=== PATIENT | female | born 1990 | race African-American/Black ===

== ENCOUNTER 2018-01-30 03:20 | Inpatient (IN) | payer OTHER ==
[2018-01-30] MEDS: ELECTROLYTE-148 SOLN 1,000 ML IV SCH (03:40)
[2018-01-30] MEDS ORDERED: BUTORPHANOL TARTRATE 1 MG/ML VIAL IVPB ONE (04:00)
[2018-01-30] MEDS ORDERED: PROMETHAZINE HCL 25 MG/1 ML VIAL IVPB ONE (04:00)
[2018-01-30] MEDS ORDERED: BUTORPHANOL TARTRATE 1 MG/ML VIAL ONE (04:07)
[2018-01-30] MEDS ORDERED: PROMETHAZINE HCL 25 MG/1 ML VIAL ONE (04:08)
[2018-01-30 04:40] VITALS: BMI 36.8
[2018-01-30 04:43] LABS: BASO % 0.5 % (0-2.0); EOS % 0.8 % (0-4.5); HEMATOCRIT 32.9 % (32.4-45.2); HEMOGLOBIN 10.8 GM/dL (10.7-15.3); LYMPH % 21.3 % (8-40); MCHC 32.7 g/dl (32.0-36.0); MEAN CELL VOLUME 76.5 fl (80-96); MEAN PLT VOLUME 9.6 fl (7.5-11.1); MONO % 8.2 % (3.8-10.2); NEUT % 69.2 % (42.8-82.8); PLATELET COUNT 233 K/MM3 (134-434); RDW 20.4 % (11.6-15.6); WHITE BLOOD COUNT 6.8 K/mm3 (4.0-10.0)
[2018-01-30 05:22] LABS: INR 0.93 (0.82-1.09); PROTHROMBIN TIME (PATIENT) 10.5 SEC (9.98-11.88)
[2018-01-30 05:24] LABS: ACTIVATED PTT 27.4 SECONDS (26.9-34.4)
[2018-01-30 05:30] LABS: ANION GAP 7 (8-16); BLOOD UREA NITROGEN 11 mg/dL (7-18); CALCIUM 8.8 mg/dL (8.5-10.1); CHLORIDE 107 mmol/L (98-107); CO2 24 mmol/L (21-32); CREATININE 0.7 mg/dL (0.55-1.02); GLUCOSE,RANDOM 78 mg/dL (74-106); POTASSIUM 4.3 mmol/L (3.5-5.1); SODIUM 138 mmol/L (136-145)
[2018-01-30] MEDS ORDERED: FENTANYL/BUPIVACAINE/NS/PF - PCEA - 50 ML DISP.SYRIN EP ONE ×2 (05:51→11:36)
[2018-01-30] MEDS ORDERED: NALOXONE HCL 0.4 MG/ML VIAL IVPUSH PRN (06:27)
[2018-01-30] MEDS ORDERED: FENTANYL/BUPIVACAINE/NS/PF - PCEA - 50 ML DISP.SYRIN EP SCH (06:30)
[2018-01-30] MEDS ORDERED: TUBERCULIN PPD 5 TU/0.1ML SYRINGE (IN PATIENT USE ONLY) ID ONE (09:00)
--- NOTE | 2018-01-30 09:24 | HP ---
Past Medical History - Admission History of Present Illness: 27 yo @ 40 0/7 wks, EDC 01/30/2018 complicated by: 1. Left ovarian cyst, 2.8 cm 2. Early transfer from [facility] Patient presents with chief complaint of contractions which began at approximately 2200 on 01/29/2018. She reports movement, denies leakage of fluid or vaginal bleeding. She was found to be 3-4 cm on presentation. History Source: Patient Limitations to Obtaining History: No Limitations - Past Medical History Cardiovascular: No: HTN Pulmonary: No: Asthma Gastrointestinal: No: GERD ...: 5 ...Para: 1 ...Term: 1 ...: 0 ...Spon : 0 ...Induced : 3 ...Multiple Gestation: 0 ...LMP: 05/03/17 ... Weeks Gestation by Dates: 38.6 ...EDC by Dates: 02/07/18 ...EDC by Sono: 01/30/18 Heme/Onc: No: Anemia - Past Surgical History Hx Myomectomy: No Hx Transabdominal Cerclage: No Additional Surgical History: 2010- Left Breast Cyst, benign. 2016- Right breast Cyst, benign - Smoking History Smoking history: Never smoked Have you smoked in the past 12 months: No - Alcohol/Substance Use Hx Alcohol Use: No - Social History History of Recent Travel: No Home Medications - Allergies Allergies/Adverse Reactions: Allergies Allergy/AdvReac Type Severity Reaction Status Date / Time No Known Allergies Allergy Verified 01/10/18 11:38 - Home Medications Home Medications: Ambulatory Orders Plus Iron Tablet 1 tablet PO DAILY 01/30/18 Family Disease History - Family Disease History Family History: Denies Review of Systems - Review of Systems Constitutional: reports: No Symptoms HENT: reports: No Symptoms Neck: reports: No Symptoms Gastrointestinal: reports: No Symptoms Genitourinary: reports: No Symptoms Musculoskeletal: reports: No Symptoms Neurological: reports: No Symptoms Endocrine: reports: No Symptoms Psychiatric: reports: No Symptoms Physical Exam - Maternity Vital Signs: Vital Signs Temperature 98.2 F 01/30/18 08:00 Pulse Rate 93 H 01/30/18 08:30 Respiratory Rate 20 01/30/18 08:30 Blood Pressure 112/80 01/30/18 08:30 O2 Sat by Pulse Oximetry (%) 100 01/30/18 08:30 Constitutional: Yes: Well Nourished, No Distress, Calm Cardiovascular: Yes: Regular Rate and Rhythm Lungs: Clear to auscultation - Abdominal Exam/OB Number of Fetuses: Single Presentation: Vertex Contractions: No Regularity: Regular Monitor Mode: External Category: I Accelerations: Non-Uniform Decelerations: None - Vaginal Exam/OB Dilatation (cm): 5 Effacement (%): 70 Amniotic Membrane Status: Ruptured Station: -1 - Physical Exam Psychiatric: Yes: Alert, Oriented - Labs Lab Results: CBC, BMP 01/30/18 04:00 01/30/18 04:00 PNL: O positive, antibody negative; HBs Ag negative; HCV negative; RPR NR; HIV negative; Varicella Immune; Rubella Immune; Parvo Immune; GBS negative; GCT wnl Hemorrhage Risk Assessment - Risk Factors Medium Risk Factors: Yes: None High Risk Factors: Yes: None Risk Score: 1 Risk Level: Medium Risk Assessment/Plan 27 yo @ 40 0/7 wks active labor 1. Admit to L&D, consents reviewed and signed 2. Admission labs reviewed 3. AROM performed, clear fluid 4. Epidural for pain control 5. GBS negative 6. Category I FHT 7. Will proceed with expectant management
[2018-01-30] MEDS ORDERED: BUPIVACAINE HCL/PF 0.25% (2.5MG/ML) 10 ML VIAL ONE (10:01)
[2018-01-30] MEDS ORDERED: LIDOCAINE HCL 1% PRESERVATIVE FREE - 30ML VIAL ONE (11:55)
[2018-01-30] MEDS ORDERED: OXYTOCIN 20 UNITS in 0.9% NS 40 UNIT/2,000 ML INFUS.BAG IV ONE (11:55)
[2018-01-30] MEDS ORDERED: OXYTOCIN 30 UNITS in 0.9% NS 30 UNIT/500 ML INFUS.BAG IVPB ONE (13:11)
--- NOTE | 2018-01-30 13:28 | PN ---
Progress Note (short form) - Note Progress Note: cx ant,lip 80 vx 0 mr, fhr cat 1, has epidural ,contraction short duration, advised pitocin induction
[2018-01-30] MEDS ORDERED: OXYTOCIN 15 UNITS in 0.9% NS 15 UNIT/250 ML INFUS.BAG IVPB SCH (14:00)
[2018-01-30] MEDS ORDERED: OXYTOCIN 30 UNITS in 0.9% NS 30 UNIT/500 ML INFUS.BAG IVPB SCH (14:00)
[2018-01-30] MEDS ORDERED: IBUPROFEN 600 MG TABLET (FP) PO PRN (14:27)
[2018-01-30] MEDS ORDERED: oxyCODONE HCL 5 MG TABLET PO PRN (14:27)
[2018-01-30] MEDS ORDERED: ACETAMINOPHEN 325 MG TABLET (FP) PO PRN (14:27)
[2018-01-30] MEDS ORDERED: WITCH HAZEL 50% (TUCKS) 40 PAD/JAR PAD TP PRN (14:27)
[2018-01-30] MEDS ORDERED: BENZOCAINE 28 GM HEMORRHOIDAL OINTMENT TP PRN (14:27)
[2018-01-30] MEDS ORDERED: METHYLERGONOVINE MALEATE 0.2 MG/1 ML AMP IM PRN (14:27)
[2018-01-30] MEDS ORDERED: OXYTOCIN 20 UNITS in 0.9% NS 20 UNIT/1,000 ML INFUS.BAG IV SCH (14:30)
[2018-01-30] MEDS ORDERED: D5W-LR W/ 20 UNITS OXYTOCIN 1,000 ML IV SCH (14:30)
[2018-01-30] MEDS ORDERED: BISACODYL 10 MG SUPP.RECT RC PRN (14:36)
[2018-01-30] MEDS ORDERED: BENZOCAINE 20% 57 GM BOTTLE TP PRN (14:36)
[2018-01-30 14:48] LABS: ARTERIAL BLD GAS O2 SATURATION 23.3 % (90-98.9); ARTERIAL BLOOD GAS BASE EXCESS -3.4 meq/l (-2-2); ARTERIAL BLOOD GAS pH 7.24 (7.35-7.45)
[2018-01-30] MEDS ORDERED: ceFAZolin SODIUM 1 GM VIAL ONE (15:00)
[2018-01-30 16:01] LABS: ARTERIAL BLOOD GAS PO2 16.5 mmHg (80-100)
[2018-01-30 16:02] LABS: VENOUS PC02 41.7 mmHg (38-52); VENOUS PO2 28.3 mmHg (28-48)
[2018-01-30 16:03] LABS: VENOUS PH 7.32 (7.32-7.42)
[2018-01-30] MEDS ORDERED: IBUPROFEN 600 MG TABLET (FP) PO ONE (17:18)
[2018-01-30] MEDS ORDERED: ACETAMINOPHEN 325 MG TABLET (FP) ONE (17:18)
[2018-01-30] MEDS ORDERED: CEFAZOLIN 2 GM/D5W 2 GM/50 ML ML IVPB ONE (17:30)
--- NOTE | 2018-01-30 17:43 | PN ---
Progress Note (short form) - Note Progress Note: had temp 101.7 pp, asymptomatic, blood culture taken, iv ancef
--- NOTE | 2018-01-30 17:51 | DS ---
Physical Exam-DIVE SUPERINTENDENT Vital Signs: Vital Signs Temperature 98.0 F 01/30/18 17:38 Pulse Rate 102 H 01/30/18 15:15 Respiratory Rate 20 01/30/18 15:15 Blood Pressure 130/74 01/30/18 15:15 O2 Sat by Pulse Oximetry (%) 100 01/30/18 13:15 Labs: CBC, BMP 01/30/18 04:00 01/30/18 04:00 Delivery - Delivery Vaginal Delivery: Spontaneous Type of Anesthesia: Epidural Episiotomy/Laceration: None EBL (cc): 300 Delivery, Single - Stages of Labor Date 1st Stage Initiatied: 01/30/18 Time 1st Stage Initiated: 22:00 Date 2nd Stage Initiated: 01/30/18 Time 2nd Stage Initiated: 13:40 Date of Delivery: 01/30/18 Time of Delivery: 14:11 Time Placenta Delivered: 14:15 Placenta: Yes: Spontaneous - Condition of Infant Financial Operations Analyst/Shoe Patternmaker Present: No Infant Gender: Male Weight: 7 lb 1 oz Position: Left, OA Total Hours ROM (Hrs/Mins): 5hr 41min - 1 Minute Total Score: 9 5 Minutes Total Score: 9 - Feeding Plan Initial Plan: Elected not to breastfeed exclusively throughout hospitalization Discharge Summary Reason For Visit: LABOR ADMIT Condition: Good - Instructions Diet, Activity, Other Instructions: regular diet, no intercourse , follow up office 4 weeks Disposition: HOME - Home Medications Comprehensive Discharge Medication List: Ambulatory Orders Plus Iron Tablet 1 tablet PO DAILY 01/30/18
[2018-01-30 17:59] LABS: URINE APPEARANCE CLEAR; URINE BILIRUBIN NEGATIVE (<2.0 mg/dL); URINE COLOR LTYELLOW; URINE GLUCOSE (UA) NEGATIVE (NEGATIVE); URINE KETONE TRACE (NEGATIVE); URINE LEUK ESTERASE TRACE (NEGATIVE); URINE NITRITE NEGATIVE (NEGATIVE); URINE PROTEIN NEGATIVE (NEGATIVE); URINE UROBILINOGEN NEGATIVE mg/dL (0.2-1.0)
[2018-01-30] MEDS: FERROUS SO4 325 MG TABLET (FP) PO SCH (18:00)
[2018-01-30 18:13] LABS: EPI CELLS RARE /HPF (FEW); URINE MUCUS RARE
[2018-01-31] MEDS ORDERED: CEFAZOLIN 1 GM in DEXTROSE 5%-WATER - 50 ML IVPB SCH (02:00)
[2018-01-31] MEDS: CEFAZOLIN 1 GM/D5W 1 GM/50 ML BAG IVPB SCH ×2 (03:05→09:01)
--- NOTE | 2018-01-31 06:41 | PN ---
Progress Note (short form) - Note Progress Note: ppd 1, no c/o, no dysuria, no excess vaginal bleeding CBC, BMP 01/30/18 04:00 01/30/18 04:00 Last Vital Signs Temp Pulse Resp BP Pulse Ox 98.2 F 79 20 133/83 100 01/31/18 05:00 01/31/18 05:00 01/31/18 05:00 01/31/18 05:00 01/30/18 13:15 abdomen soft, uterus firm, non tender ,no cva lochia mild, no foul odor no calf tenderness plan ambulate . cbc
[2018-01-31] MEDS: ELECTROLYTE-148 SOLN 1,000 ML IV SCH (07:10)
[2018-01-31 07:58] LABS: BASO % 0.3 % (0-2.0); EOS % 0.7 % (0-4.5); HEMATOCRIT 33.4 % (32.4-45.2); HEMOGLOBIN 10.5 GM/dL (10.7-15.3); LYMPH % 11.8 % (8-40); MCH 24.4 pg (25.7-33.7); MCHC 31.5 g/dl (32.0-36.0); MEAN CELL VOLUME 77.6 fl (80-96); MEAN PLT VOLUME 8.7 fl (7.5-11.1); MONO % 5.6 % (3.8-10.2); NEUT % 81.6 % (42.8-82.8); PLATELET COUNT 228 K/MM3 (134-434); RBC 4.31 M/mm3 (3.60-5.2); RDW 21.8 % (11.6-15.6); WHITE BLOOD COUNT 14.9 K/mm3 (4.0-10.0)
[2018-01-31] MEDS: FERROUS SO4 325 MG TABLET (FP) PO SCH ×2 (08:09→16:50)
[2018-01-31] MEDS: PRENATAL VITAMINS W/ FOLIC ACID TABLET (FP) PO SCH (09:04)
[2018-01-31] MEDS ORDERED: PRENATAL VITAMINS W/ FOLIC ACID TABLET (FP) PO SCH (10:00)
[2018-01-31] MEDS: AMOX TR/POT CLAV 875MG/125MG TABLETS (FP) PO SCH (16:50)
[2018-01-31] MEDS ORDERED: SENNOSIDES/DOCUSATE COMBO (SENNA PLUS) TABLET (UD) PO PRN (22:00)
--- NOTE | 2018-02-01 08:10 | PN ---
Progress Note (short form) - Note Progress Note: ppd 2 no c/o , voids ok, no excess vaginal bleeding CBC, BMP 01/31/18 07:00 01/30/18 04:00 Last Vital Signs Temp Pulse Resp BP Pulse Ox 98.6 F 88 20 140/89 100 01/31/18 22:00 01/31/18 22:00 01/31/18 22:00 01/31/18 22:00 01/30/18 13:15 abdomen soft, non tender uterus firm lochia mild no calf tenderness plan d/c home.on po augmentin
[2018-02-01] MEDS: AMOX TR/POT CLAV 875MG/125MG TABLETS (FP) PO SCH (08:34)
[2018-02-01] MEDS: FERROUS SO4 325 MG TABLET (FP) PO SCH (08:34)
[2018-02-01] MEDS: PRENATAL VITAMINS W/ FOLIC ACID TABLET (FP) PO SCH (09:00)
[2018-02-01 10:08] VITALS: BP 138/81; PULSE 84; TEMP 98
== END 2018-02-01 12:00 | disposition home or self-care (01) | DRG 560 ==
LOC: JLDR 03:20 → J3W 17:40
PROVIDERS: ADMIT Obstetrics & Gynecology; ATTEND Obstetrics & Gynecology
PROC: 10E0XZZ Delivery of Products of Conception, External Approach (ICD-10-PCS; principal; 2018-01-30)
PROC: 10907ZC Drainage of Amniotic Fluid, Therapeutic from Products of Conception, Via Natural or Artificial Opening (ICD-10-PCS; 2018-01-30)
DX: O48.0 Post-term pregnancy (principal); O34.83 Maternal care for other abnormalities of pelvic organs, third trimester; N83.292 Other ovarian cyst, left side; Z37.0 Single live birth; Z3A.40 40 weeks gestation of pregnancy
CPT/HCPCS: 36415; 36600; 59409; 80048; 81003; 81015; 82803; 85025; 85610; 85730; 86593; 86850; 86900; 86901; 87040; 87389